=== PATIENT | male | born 1935 | race Caucasian/White ===

== ENCOUNTER 2018-05-07 12:26 | Observation (INO) ==
--- NOTE | 2018-05-07 12:34 | ERNOTE ---
Dyspnea - General Presenting Symptoms: shortness of breath Time Seen by Provider: 05/07/18 12:26 Source: patient Exam Limitations: no limitations - Immun/Allergies/Home Medications Immunizations: IMMUNIZATION HX Immunizations Up to Date Yes History of Influenza Vaccine Yes Hx Pneumococcal Vaccination Yes Allergies/Adverse Reactions: Allergies No Known Allergies Allergy (Unverified 11/05/17 14:28) Home Medications: HOME MEDICATIONS Acetaminophen [Tylenol] 100 mg PO Q4H PRN 05/07/18 [Last Taken Unknown] Atenolol [Tenormin] 25 mg PO DAILY 05/07/18 [Last Taken Unknown] Fluticasone Propionate [Flovent Diskus] 50 mcg INHALATION DAILY 05/07/18 [Last Taken Unknown] Phenylephrine HCl [Lawson-Synephrine 0.5% Nasal [place]] 15 ml NS BID 05/07/18 [Last Taken Unknown] Potassium Chloride [K-Dur] 10 meq PO TID 05/07/18 [Last Taken Unknown] Rivaroxaban [Xarelto] 20 mg PO DAILY 05/07/18 [Last Taken Unknown] Sennosides [Senna Lax] 2 tab PO BID 05/07/18 [Last Taken Unknown] Tamsulosin HCl [Flomax] 0.4 mg PO DAILY 05/07/18 [Last Taken Unknown] Torsemide [Demadex] 20 mg PO BID 05/07/18 [Last Taken Unknown] - History of Present Illness Narrative: Patient was in the building for an echo ordered by Dr Fisher for his severe aortic stenosis. Due to significant shortness of breath he came to the ER. He has had increasing abdominal girth over the last years but worse more recently, has a diagnosis of severe aortic stenosis, a-fib, and CHF. He had gained about 20 pounds over the last year, was started on lasix recently and has lost 5lbs over the last week. He is short of breath with minimal exertion and any attempt to lay down. He is not sure of the cause of his abdominal swelling, drinks 2oz bourbon bid, his has been cutting him down more recently to 1/2 oz Initiating event: Denies: upper resp illness, out of meds Modifying Factors - (Improves): Reports: rest Modifying Factors (Worsens): Reports: activity Associated Symptoms-Dyspnea: Denies: fever/chills, sweating, chest pain/discomfort, dizziness, lightheadedness Prior Treatment: Denies: currently on antibiotics Review of Systems - Review of Systems Constitutional: Absent: recent illness, fever, chills ENT: Absent: nose congestion, sore throat Respiratory: Present: shortness of breath. Absent: cough Cardiology: Absent: chest pain Gastrointestinal/Abdominal: Present: See HPI. Absent: nausea, vomiting, abdominal pain Genitourinary: Present: no symptoms reported Musculoskeletal: Absent: back pain Skin: Absent: rash Neurological: Absent: headache Medical History (Last Updated 05/07/18 @ 12:44 by Joanna Fortune MD) Afib Aortic stenosis CHF (congestive heart failure) Surgical History: Surgical History (Last Updated 05/07/18 @ 12:44 by Joanna Fortune MD) Hx of cholecystectomy (Acute) H/O inguinal hernia repair (Acute) Family History: Family History (Last Reviewed 05/07/18 @ 13:12 by Yajaira Mtz RN) Father Mother Social History: Preferred Language Estonian No Social History Section defined Physical Exam - Physical Exam General Appearance: Present: wd/wn, alert, no apparent distress, thin Ears, Nose, Throat: Present: normal pharynx Respiratory: Present: no respiratory distress, normal breath sounds, chest nontender, lungs clear Cardiovascular/Chest: Present: irregularly irregular, systolic murmur Gastrointestinal/Abdominal: Present: other - huge abdomen, non tender, obvious ascites, slight skin edema in lower abdomen Extremity Exam: Present: other - bilateral edema, both legs wrapped in dressings (from wound care doctor?) Neurological Exam: Present: alert, oriented, normal mood/affect Skin Exam: Present: normal color, warm/dry Progress - Results and Orders Patient's Lab Results:: I have reviewed the patient's lab results. - Vital Signs Patient's Vital Signs:: I have reviewed the patient's vital signs. - EKG EKG #1 EKG: atrial fibrillation, RBBB, unchanged from - 10/2017 EKG read: Interp. by me - Progress/Reassessment Progress Note-Subjective: 05/07/18 13:28 reviewed out patient abdominal ultrasound consulted Dr Mohan for paracenthesis 05/07/18 15:43 patient feeling significantly better after draining off almost 10 liters of fluid, agrees to admission discussed with bambi Schmid to admit for observation to monitor BP and infuse albumin (6-8g per liter of fluid removed will take a minimum of 5 hours to infuse) Departure Clinical Impression: Severe aortic stenosis CHF (congestive heart failure) Qualifiers: Heart failure type: unspecified Heart failure chronicity: unspecified Qualified Code(s): I50.9 - Heart failure, unspecified Cirrhosis of liver Qualifiers: Hepatic cirrhosis type: unspecified hepatic cirrhosis Ascites presence: with ascites Qualified Code(s): K74.60 - Unspecified cirrhosis of liver Ascites Qualifiers: Ascites type: due to alcoholic cirrhosis Qualified Code(s): K70.31 - Alcoholic cirrhosis of liver with ascites - Departure Disposition: Still a patient Condition: Stable
[2018-05-07 12:58] LABS: Hemoglobin 12.7 gm/dL (13.5-18.0); Mean Cell Volume 98.7 fl (78-100); Mean Corpuscular Hemoglobin 32.2 pg (27-31); Mean Corpuscular Hgb Conc 32.6 g/dl (32-36); Mean Platelet Volume 9.8 fl (8-11.3); Neutrophil % 76.5 % (42-75.0); Platelet Count 216 K/mm3 (150-450); Red Blood Count 3.95 M/mm3 (4.7-6.0); Red Cell Distribution Width 16.5 % (11.5-14.0); White Blood Count 7.8 K/mm3 (4.0-10.5)
[2018-05-07 13:06] LABS: Prothrombin Time (Patient) 14.4 Seconds (9.0-11.0)
[2018-05-07 13:17] LABS: INR 1.43 INR (0.90-1.10); Partial Thrombolplastin Time 29.4 Seconds (24-32)
[2018-05-07 13:18] LABS: ALT 7 U/L (19-67); AST 27 U/L (0-48); Albumin * 3.3 gm/dl (3.4-5.0); Alkaline Phosphatase * 79 U/L (50-170); Anion Gap 12.9 mmol/L (6.8-13.8); BNP * 10911 pg/mL (5-650); BUN/Creatinine Ratio 24.8 (9.0-21.6); Bilirubin, Total 2.3 mg/dL (0.0-1.1); Blood Urea Nitrogen 29 mg/dL (6-23); Ca. Corrected For Albumin 9.3 mg/dL (8.4-10.2); Calcium * 9.1 mg/dL (7.9-10.9); Carbon Dioxide 32.3 mmol/L (24-32.6); Chloride 102 mmol/L (97-106); Glucose * 91 mg/dL (70-110); Potassium 3.2 mmol/L (3.4-4.6); Sodium 144 mmol/L (132-142); Total Protein 6.7 gm/dL (6.2-8.2)
[2018-05-07] MEDS: ALBUMIN HUMAN 12.5 G/50 ML BTL IV SCH ×5 (15:56→20:37)
[2018-05-07 17:05] LABS: Body Fluid Appearance CLEAR (CLEAR); Body Fluid Color PALE YELLOW (COLORLESS)
[2018-05-07 17:06] LABS: Body Fluid WBC 66 /uL (0-1000)
[2018-05-07] MEDS ORDERED: ACETAMINOPHEN 500 MG TABLET PO PRN (17:30)
[2018-05-07] MEDS ORDERED: TAMSULOSIN HCL 0.4 MG CAP.SR.24H PO SCH (19:00)
[2018-05-07] MEDS: SENNOSIDES 8.6 MG TABLET PO SCH (20:43)
[2018-05-07] MEDS: SPIRONOLACTONE 25 MG TABLET PO SCH (20:43)
[2018-05-07] MEDS ORDERED: IBUPROFEN 400 MG TABLET PO PRN (22:03)
[2018-05-07] MEDS ORDERED: BISACODYL 5 MG TABLET.DR PO ONE (22:04)
--- NOTE | 2018-05-07 22:21 | HP ---
Chief Complaint - Chief Complaint Date of Service: 05/07/18 Time of Service: 21:15 Chief Complaint: abdominal ascites History of Present Illness: Mr. Knight is an 82 yo wh. male with severe ascites who presented to the ER. He underwent abdominal pericentesis and removed 9900cc of peritoneal fluid. He is feeling much better tonight. He is breathing much easier. He is no distress now. He drinks small amounts of bourbon twice daily. His renal function is normal. The liver enzymes are low but the bilirubin is high. He started having increasing abdominal girth several months ago. He complains of constipation. Medical History (Last Reviewed 05/07/18 @ 17:23 by Eulalia Sears RN) Abnormal glucose Afib CHF (congestive heart failure) Diverticulosis Edema due to congestive heart failure Hypercholesteremia Hypertension PSA elevation Right carotid bruit Aortic stenosis Surgical History: Surgical History (Last Reviewed 05/07/18 @ 17:23 by Eulalia Sears RN) Hx of cholecystectomy (Acute) H/O inguinal hernia repair (Acute) H/O adenoidectomy History of herniorrhaphy Hx of colonoscopy Hx of tonsillectomy Family History: Family History (Last Reviewed 05/07/18 @ 17:23 by Eulalia Sears RN) Father Mother Social History: Patient Lives/Resources [facility] Utilized Preferred Language Italian Smoking Status Former smoker Have you smoked in the past 12 No months Do you dip or chew tobacco No Alcohol Use heavy Drug Use none No Social History Section defined Review Of Systems (GEN) - Review of Systems Generalized/Overall Review: Present: Weakness, Malaise, Weight gain EENTM: Present: No Symptoms Reported Respiratory: Present: Cough, Wheezing Cardiac: Present: Edema, Other - History of CHF Abdominal: Present: Constipation, Other - ascites Genitourinary: Present: No Symptoms Reported Musculoskeletal: Present: No Symptoms Reported Neurological: Present: No Symptoms Reported Skin: Present: No Symptoms Reported Endocrine: Present: No Symptoms Reported Misc: All systems neg except as marked Immunizations: IMMUNIZATION HX Immunizations Up to Date Yes History of Influenza Vaccine Yes Hx Pneumococcal Vaccination Yes Allergies/Adverse Reactions: Allergies Allergy/AdvReac Type Severity Reaction Status Date / Time No Known Allergies Allergy Verified 05/07/18 17:23 Home Medications: HOME MEDICATIONS Acetaminophen [Tylenol] 1,000 mg PO Q4H PRN 05/07/18 [Last Taken Unknown] Atenolol [Tenormin] 25 mg PO DAILY 05/07/18 [Last Taken Unknown] Fluticasone Propionate [Flovent Diskus] 50 mcg INHALATION DAILY 05/07/18 [Last Taken Unknown] Phenylephrine HCl [Lawson-Synephrine 0.5% Nasal [place]] 15 ml NS BID 05/07/18 [Last Taken Unknown] Potassium Chloride [K-Dur] 10 meq PO TID 05/07/18 [Last Taken Unknown] Rivaroxaban [Xarelto] 20 mg PO DAILY 05/07/18 [Last Taken Unknown] Sennosides [Senna Lax] 2 tab PO BID 05/07/18 [Last Taken Unknown] Tamsulosin HCl [Flomax] 0.4 mg PO DAILY 05/07/18 [Last Taken Unknown] Torsemide [Demadex] 20 mg PO BID 05/07/18 [Last Taken Unknown] Exam - Exam Vital Signs: Vital Signs - Last Taken Temp 36.7 C 05/07/18 16:50 Pulse 60 05/07/18 18:03 Resp 19 05/07/18 16:50 BP 97/58 05/07/18 17:56 Pulse Ox 98 05/07/18 16:50 Constitutional: Present: Alert, Oriented x3, Cooperative, Well developed, Well nourished, No distress Eye Exam: bilateral eye: normal inspection, PERRL, EOMI Neck: Present: non-tender, full range of motion, supple, normal inspection, trachea midline Back Exam: Present: normal inspection, no CVA tenderness, no vertebral tenderness Breasts: Present: Exam deferred Respiratory: Present: chest non-tender, lungs clear Cardiovascular/Chest: Present: normal peripheral pulses, regular rate, rhythm, no chest tenderness, no gallop, no JVD, no murmur, no rub, edema Peripheral Pulses: carotid (R): 2+, carotid (L): 2+, radial (R): 2+, radial (L): 2+ Abdomen: Present: Normal bowel sounds, soft, nontender, nondistended - since the pericentesis, no rebound tenderness, no hepatospenomegaly, no masses, obese /Rectal: Present: Exam deferred Extremity: Present: normal range of motion, non-tender Skin Exam: Present: normal color, warm/dry, no cyanosis Lymphatic: Present: no adenopathy Neurologic: Present: phlebotomist associate II-XII nml as tested, no motor/sensory deficits, alert, normal mood/affect, oriented x 3 Appearance: Present: appropriate appearance, appropriate insight, neat, no memory impairment Eye contact: Present: cooperative, good eye contact Thoughts: Present: normal thought pattern, no apparent hallucination Diagnostic Studies: Abnormal Lab Results 05/07/18 05/07/18 05/07/18 Range/Units 12:48 12:48 12:48 RBC 3.95 L (4.7-6.0) M/mm3 Hgb 12.7 L (13.5-18.0) gm/dL Hct 39.0 L (42.0-52.0) % MCH 32.2 H (27-31) pg RDW 16.5 H (11.5-14.0) % Immature Gran % (Auto) 0.60 H (0.001-0.429) % Immature Gran # (Auto) 0.05 H (0.000-0.0310) K/mm3 Neutrophils % 76.5 H (42-75.0) % Lymphocytes % 11.4 L (20-51) % Monocytes % 9.9 H (0.0-9) % Lymphocytes # 0.89 L (1.5-3.5) k/mm3 PT 14.4 H (9.0-11.0) Seconds INR (Anticoag Therapy) 1.43 H (0.90-1.10) INR Sodium 144 H (132-142) mmol/L Plasma Sodium 144 H (130-142) mmol/L Potassium 3.2 L (3.4-4.6) mmol/L BUN 29 H D (6-23) mg/dL BUN/Creatinine Ratio 24.8 H (9.0-21.6) Total Bilirubin 2.3 H (0.0-1.1) mg/dL ALT 7 L (19-67) U/L B-Natriuretic Peptide 91494 H (5-650) pg/mL Albumin 3.3 L (3.4-5.0) gm/dl Fluid RBC (0-1000) /uL 05/07/18 05/07/18 Range/Units 15:28 15:34 RBC (4.7-6.0) M/mm3 Hgb (13.5-18.0) gm/dL Hct (42.0-52.0) % MCH (27-31) pg RDW (11.5-14.0) % Immature Gran % (Auto) (0.001-0.429) % Immature Gran # (Auto) (0.000-0.0310) K/mm3 Neutrophils % (42-75.0) % Lymphocytes % (20-51) % Monocytes % (0.0-9) % Lymphocytes # (1.5-3.5) k/mm3 PT (9.0-11.0) Seconds INR (Anticoag Therapy) (0.90-1.10) INR Sodium (132-142) mmol/L Plasma Sodium (130-142) mmol/L Potassium (3.4-4.6) mmol/L BUN (6-23) mg/dL BUN/Creatinine Ratio (9.0-21.6) Total Bilirubin (0.0-1.1) mg/dL ALT (19-67) U/L B-Natriuretic Peptide (5-650) pg/mL Albumin 1.9 L (3.4-5.0) gm/dl Fluid RBC Greater than 1000.0 H (0-1000) /uL Laboratory Results WBC 7.8 K/mm3 (4.0-10.5) 05/07/18 12:48 RBC 3.95 M/mm3 (4.7-6.0) L 05/07/18 12:48 Hgb 12.7 gm/dL (13.5-18.0) L 05/07/18 12:48 Hct 39.0 % (42.0-52.0) L 05/07/18 12:48 MCV 98.7 fl (78-100) 05/07/18 12:48 MCH 32.2 pg (27-31) H 05/07/18 12:48 MCHC 32.6 g/dl (32-36) 05/07/18 12:48 RDW 16.5 % (11.5-14.0) H 05/07/18 12:48 Plt Count 216 K/mm3 (150-450) 05/07/18 12:48 MPV 9.8 fl (8-11.3) 05/07/18 12:48 Immature Gran % (Auto) 0.60 % (0.001-0.429) H 05/07/18 12:48 Immature Gran # (Auto) 0.05 K/mm3 (0.000-0.0310) H 05/07/18 12:48 Neutrophils % 76.5 % (42-75.0) H 05/07/18 12:48 Lymphocytes % 11.4 % (20-51) L 05/07/18 12:48 Monocytes % 9.9 % (0.0-9) H 05/07/18 12:48 Eosinophils % 1.1 % (0.0-3.0) 05/07/18 12:48 Basophils % 0.5 % (0.0-1.0) 05/07/18 12:48 Nucleated RBC % 0.0 k/mm3 (0-1) 05/07/18 12:48 Neutrophils # 6.0 K/mm3 (1.3-6.0) 05/07/18 12:48 Lymphocytes # 0.89 k/mm3 (1.5-3.5) L 05/07/18 12:48 Monocytes # 0.8 k/mm3 (0.0-1.0) 05/07/18 12:48 Eosinophils # 0.1 k/mm3 (0.0-0.7) 05/07/18 12:48 Absolute Basophils 0.0 k/mm3 (0.0-0.1) 05/07/18 12:48 PT 14.4 Seconds (9.0-11.0) H 05/07/18 12:48 INR (Anticoag Therapy) 1.43 INR (0.90-1.10) H 05/07/18 12:48 PTT (Arline) 29.4 Seconds (24-32) 05/07/18 12:48 Sodium 144 mmol/L (132-142) H 05/07/18 12:48 Plasma Sodium 144 mmol/L (130-142) H 05/07/18 12:48 Potassium 3.2 mmol/L (3.4-4.6) L 05/07/18 12:48 Chloride 102 mmol/L (97-106) 05/07/18 12:48 Carbon Dioxide 32.3 mmol/L (24-32.6) 05/07/18 12:48 Anion Gap 12.9 mmol/L (6.8-13.8) 05/07/18 12:48 BUN 29 mg/dL (6-23) H D 05/07/18 12:48 Creatinine 1.17 mg/dL (0.4-1.4) 05/07/18 12:48 Est GFR (Non-Af Amer) 63 mL/min (60-130) D 05/07/18 12:48 BUN/Creatinine Ratio 24.8 (9.0-21.6) H 05/07/18 12:48 Random Glucose 91 mg/dL (70-110) 05/07/18 12:48 Calcium 9.1 mg/dL (7.9-10.9) 05/07/18 12:48 Calcium Adj for Albumin 9.3 mg/dL (8.4-10.2) 05/07/18 12:48 Total Bilirubin 2.3 mg/dL (0.0-1.1) H 05/07/18 12:48 AST 27 U/L (0-48) 05/07/18 12:48 ALT 7 U/L (19-67) L 05/07/18 12:48 Alkaline Phosphatase 79 U/L (50-170) 05/07/18 12:48 Ammonia Less than 17.0 mcmol/L (11-35) 05/07/18 12:48 B-Natriuretic Peptide 99103 pg/mL (5-650) H 05/07/18 12:48 Total Protein 6.7 gm/dL (6.2-8.2) 05/07/18 12:48 Albumin 1.9 gm/dl (3.4-5.0) L 05/07/18 15:34 Fluid Color Pale yellow (COLORLESS) 05/07/18 15:28 Fluid Appearance Clear (CLEAR) 05/07/18 15:28 Fluid WBC 66 /uL (0-1000) 05/07/18 15:28 Fluid RBC Greater than 1000.0 /uL (0-1000) H 05/07/18 15:28 Fluid Neutrophils 61 % 05/07/18 15:28 Fluid Lymphocytes 31 % 05/07/18 15:28 Fluid Monocytes 8 % 05/07/18 15:28 Ethyl Alcohol Less than 3.0 mg/dL (0.0-10.0) 05/07/18 12:48 Miscellaneous Cytology Spec. sent to path. 05/07/18 Unknown Assessment/Plan - Narrative Narrative: 1. Wt. daily 2. Recheck lab in the morning 3. Abdominal US in the morning 4. No ETOH or Acetaminophen 5. Dulcolax for constipation 6. Regular diet. - Assessment/Plan (1) Ascites Problem: Acute Qualifiers: Ascites type: due to alcoholic cirrhosis Qualified Code(s): K70.31 - Alcoholic cirrhosis of liver with ascites (2) Cirrhosis of liver Problem: Acute Qualifiers: Hepatic cirrhosis type: unspecified hepatic cirrhosis Ascites presence: with ascites Qualified Code(s): K74.60 - Unspecified cirrhosis of liver; R18.8 - Other ascites (3) Severe aortic stenosis Problem: Acute (4) CHF (congestive heart failure) Problem: Acute Qualifiers: Heart failure type: systolic Heart failure chronicity: chronic Qualified Code(s): I50.22 - Chronic systolic (congestive) heart failure
[2018-05-08 05:17] LABS: Hematocrit 36.6 % (42.0-52.0); Hemoglobin 12.1 gm/dL (13.5-18.0); Mean Cell Volume 98.1 fl (78-100); Mean Corpuscular Hemoglobin 32.4 pg (27-31); Mean Corpuscular Hgb Conc 33.1 g/dl (32-36); Mean Platelet Volume 9.3 fl (8-11.3); Neutrophil # 5.1 K/mm3 (1.3-6.0); Neutrophil % 75.8 % (42-75.0); Platelet Count 176 K/mm3 (150-450); Red Blood Count 3.73 M/mm3 (4.7-6.0); Red Cell Distribution Width 16.4 % (11.5-14.0); White Blood Count 6.8 K/mm3 (4.0-10.5)
[2018-05-08 05:33] LABS: Albumin * 3.5 gm/dl (3.4-5.0); Anion Gap 13.1 mmol/L (6.8-13.8); BUN/Creatinine Ratio 24.8 (9.0-21.6); Bilirubin, Total 2.2 mg/dL (0.0-1.1); Calcium * 8.9 mg/dL (7.9-10.9); Potassium 3.1 mmol/L (3.4-4.6); Total Protein 6.2 gm/dL (6.2-8.2)
[2018-05-08 06:35] LABS: Total Protein Body Fluid 3.1 mg/dL
[2018-05-08] MEDS ORDERED: RIVAROXABAN 20 MG TABLET PO SCH (09:00)
[2018-05-08] MEDS: SPIRONOLACTONE 25 MG TABLET PO SCH (09:33)
[2018-05-08] MEDS: SENNOSIDES 8.6 MG TABLET PO SCH (09:33)
[2018-05-08] MEDS ORDERED: POTASSIUM CHLORIDE 20 MEQ TABLET.SA PO SCH (10:15)
--- NOTE | 2018-05-08 11:11 | DS ---
(1) Ascites Problem: Acute Qualifiers: Ascites type: due to alcoholic cirrhosis Qualified Code(s): K70.31 - Alcoholic cirrhosis of liver with ascites (2) Cirrhosis of liver Problem: Chronic Qualifiers: Hepatic cirrhosis type: unspecified hepatic cirrhosis Ascites presence: with ascites Qualified Code(s): K74.60 - Unspecified cirrhosis of liver; R18.8 - Other ascites (3) Severe aortic stenosis Problem: Chronic (4) CHF (congestive heart failure) Problem: Chronic Qualifiers: Heart failure type: systolic Heart failure chronicity: chronic Qualified Code(s): I50.22 - Chronic systolic (congestive) heart failure (5) Hypokalemia Problem: Acute Description of Stay: Jin Knight is an 82-year-old male patient who presented to the ER because of difficulty with breathing due to severe abdominal ascites. He had nearly 10 L of fluid removed in the emergency room. He also had a BNP greater than 10,000. He has a history of aortic stenosis and congestive heart failure. Clinically I did not see any signs of CHF. His chest x-ray shows the heart is not enlarged and there is no pleural effusion. He has minimal edema. After his paracentesis he is feeling much better can breathe easy. He was admitted to replace his albumin and had 5 units of albumin administered through the night. His potassium has remained slightly low with today's value of 3.1. His CBC is unremarkable. His liver enzymes are not elevated except for bilirubin at 2.3 yesterday and 2.2 today. There is some question as to whether all of his abdominal ascites is from hepatic cirrhosis or from congestive heart failure or perhaps both. He admits to drinking small amounts of alcohol each day but never drinks to excess. He does have a a grade 4/6 systolic ejection murmur heard best at the left upper sternal border. It is low pitched and rumbling. The chest x-ray does not show any cardiomegaly and there is no pleural effusion. The abdominal ultrasound does show a small liver that is scarred and nodular consistent with cirrhosis. At any rate, taking off nearly 20 pounds of fluid from his abdomen has made him feel much improved. The rest of his evaluation can be done as an outpatient. He already has an appointment to see Dr. White for cardiology. He is to avoid all alcohol and acetaminophen. He may use ibuprofen instead but should take it with food. I have added Spironolactone and low dose of 25 mg twice daily that should be increased to 50 mg twice daily in 2 weeks.. I have also added potassium today but that will need to be rechecked in 2 weeks. With the Spironolactone he probably will not need the potassium very long. I am also adding milk thistle to decongest and reduce inflammation in the liver. He should follow-up with Dr. Fisher in 2 weeks. Procedures Performed: see notes below List Procedures: Paracentesis (Done in ER) Results and Findings: Lab Pending Results 05/07/18 12:48: WBC 7.8, RBC 3.95 L, Hgb 12.7 L, Hct 39.0 L, MCV 98.7, MCH 32.2 H, MCHC 32.6, RDW 16.5 H, Plt Count 216, MPV 9.8, Immature Gran % (Auto) 0.60 H, Immature Gran # (Auto) 0.05 H, Neutrophils % 76.5 H, Lymphocytes % 11.4 L, Monocytes % 9.9 H, Eosinophils % 1.1, Basophils % 0.5, Nucleated RBC % 0.0, Neutrophils # 6.0, Lymphocytes # 0.89 L, Monocytes # 0.8, Eosinophils # 0.1, Absolute Basophils 0.0 05/07/18 12:48: PT 14.4 H, INR (Anticoag Therapy) 1.43 H, PTT (Arline) 29.4 05/07/18 12:48: Sodium 144 H, Plasma Sodium 144 H, Potassium 3.2 L, Chloride 102, Carbon Dioxide 32.3, Anion Gap 12.9, BUN 29 H D, Creatinine 1.17, Est GFR (Non-Af Amer) 63 D, BUN/Creatinine Ratio 24.8 H, Random Glucose 91, Calcium 9.1, Calcium Adj for Albumin 9.3, Total Bilirubin 2.3 H, AST 27, ALT 7 L, Alkaline Phosphatase 79, B-Natriuretic Peptide 02777 H, Total Protein 6.7, Albumin 3.3 L, Ethyl Alcohol Less than 3.0 05/07/18 12:48: Ammonia Less than 17.0 05/07/18 15:28: Fluid Color Pale yellow, Fluid Appearance Clear, Fluid WBC 66, Fluid RBC Greater than 1000.0 H, Fluid Neutrophils 61, Fluid Lymphocytes 31, Fluid Monocytes 8 05/07/18 15:34: Albumin Cancelled 05/07/18 22:40: Ammonia 22.0 05/07/18 : Miscellaneous Cytology Spec. sent to path. 05/08/18 05:10: WBC 6.8, RBC 3.73 L, Hgb 12.1 L, Hct 36.6 L, MCV 98.1, MCH 32.4 H, MCHC 33.1, RDW 16.4 H, Plt Count 176, MPV 9.3, Immature Gran % (Auto) 0.60 H, Immature Gran # (Auto) 0.04 H, Neutrophils % 75.8 H, Lymphocytes % 11.8 L, Monocytes % 9.2 H, Eosinophils % 1.9, Basophils % 0.7, Nucleated RBC % 0.0, Neutrophils # 5.1, Lymphocytes # 0.80 L, Monocytes # 0.6, Eosinophils # 0.1, Absolute Basophils 0.1 05/08/18 05:10: Sodium 143 H, Plasma Sodium 143 H, Potassium 3.1 L, Chloride 102, Carbon Dioxide 31.0, Anion Gap 13.1, BUN 29 H, Creatinine 1.17, Est GFR (Non-Af Amer) 63, BUN/Creatinine Ratio 24.8 H, Random Glucose 96, Calcium 8.9, Calcium Adj for Albumin 9.0, Total Bilirubin 2.2 H, AST 19, ALT 10 L, Alkaline Phosphatase 71, Total Protein 6.2, Albumin 3.5 05/08/18 15:34: Fluid Total Protein 3.1, Fluid Albumin 1.9 Discharge Location: Home Disposition: Home Health Service Home Health Agency: [facility] Condition: Stable Discharge Activity: Activity as tolerated Discharge Diet: General/regular food - No alcohol Referrals: Pan Fisher MD [Primary Care Provider] - Consultation Done:: no Problem Oriented Discharge Instructions to Patient/Family: Alcoholic Liver Disease, Cirrhosis, Ascites Print Language (Namibian or Albanian Available): Namibian Additional Patient Instructions (free text): Avoidance of all alcohol, acetaminophen, statins. Wt. daily and record. See PCP in 2 weeks. -Please make TCM appointment unless senior living discharge. Thank you! Cindy @ [phone]. Prescriptions (Any new or edited meds): Ibuprofen [Motrin] 400 mg PO HS PRN #30 tablet PRN Reason: Mild Pain (Pain Scale 1-3) Milk Thistle Seed Extract [Milk Thistle] 200 mg PO BIDAC #60 capsule Potassium Chloride [K-Dur] 20 meq PO DAILY #30 tablet. Spironolactone [Aldactone] 25 mg PO BID #30 tablet Complete Home Medications List: Complete Home Medication List: Acetaminophen [Tylenol] 1,000 mg PO Q4H PRN 05/07/18 Atenolol [Tenormin] 25 mg PO DAILY 05/07/18 Fluticasone Propionate [Flovent Diskus] 50 mcg INHALATION DAILY 05/07/18 Phenylephrine HCl [Lawson-Synephrine 0.5% Nasal [place]] 15 ml NS BID 05/07/18 Rivaroxaban [Xarelto] 20 mg PO DAILY 05/07/18 Sennosides [Senna Lax] 2 tab PO BID 05/07/18 Tamsulosin HCl [Flomax] 0.4 mg PO DAILY 05/07/18 Torsemide [Demadex] 20 mg PO BID 05/07/18 Ibuprofen [Motrin] 400 mg PO HS PRN #30 tablet 05/08/18 Milk Thistle Seed Extract [Milk Thistle] 200 mg PO BIDAC #60 capsule 05/08/18 Potassium Chloride [K-Dur] 20 meq PO DAILY #30 tablet.sa 05/08/18 Spironolactone [Aldactone] 25 mg PO BID #30 tablet 05/08/18 Amb Orders for Discharge: CBC Time Frame: 2 Weeks, Location: Laboratory Comprehensive Metabolic Panel Time Frame: 2 Weeks, Location: Laboratory Magnesium Time Frame: 2 Weeks, Location: Laboratory BNP * Time Frame: 2 Weeks, Location: Laboratory
[2018-05-08 13:06] VITALS: BP 101/59
== END 2018-05-08 13:10 | disposition home health service (06) ==
LOC: ER 12:26 → MS 12:26
PROVIDERS: ADMIT Family Medicine; ATTEND Family Medicine
DX: K70.31 Alcoholic cirrhosis of liver with ascites; K74.60 Unspecified cirrhosis of liver; I48.91 Unspecified atrial fibrillation; E87.6 Hypokalemia; I35.0 Nonrheumatic aortic (valve) stenosis; I10 Essential (primary) hypertension; I50.22 Chronic systolic (congestive) heart failure
CPT/HCPCS: 36415; 49083; 71020; 71046; 80053; 80320; 80329; 82040; 82140; 83519; 83880; 84155; 84157; 85025; 85610; 85730; 87081; 88108; 89051; 93005; 96365; 96366; 97110; 97116; 97161; 97166; 99285; G0378; G0481